=== PATIENT | male | born 1980 | race Caucasian/White ===

== ENCOUNTER 2019-07-26 20:50 | Emergency (ER) | payer BC ==
[2019-07-26 21:07] VITALS: BP 157/110; PULSE 117
[2019-07-26] MEDS ORDERED: HYDROmorphone 1 MG/ML Syringe IM ONE (21:50)
[2019-07-26] MEDS ORDERED: Albuterol/Ipratropium 3.0-0.5 MG/3 ML Neb Soln NEB ONE (21:50)
[2019-07-26] MEDS ORDERED: Albuterol 6.7 GM Inhaler INH SCH (22:45)
--- NOTE | 2019-07-26 22:48 | EDM.PDOC ---
ED HPI GENERAL MEDICAL PROBLEM - General Chief Complaint: Chest Pain Stated Complaint: LEFT SIDE OF CHEST PAIN Time Seen by Provider: 07/26/19 21:15 Source of Information: Reports: Patient History Limitations: Reports: No Limitations - History of Present Illness INITIAL COMMENTS - FREE TEXT/NARRATIVE: The patient presents with left chest pain and a cough. This started about a week ago with a cough. He was given a steroid and a breathing treatment and something for the cough. Two days ago when he was driving he coughed and felt severe pain to the left lower chest. He was seen here and an x-ray was done and it was negative. He was given something for the pain but it still hurts and he still has a cough. He also had a fever and chills. He has no history of asthma. Onset: Gradual Duration: Week(s): Location: Reports: Chest Quality: Reports: Sharp Severity: Moderate Improves with: Reports: Immobilization Worsens with: Reports: Breathing (and coughing) Associated Symptoms: Reports: Chest Pain, Cough, Fever/Chills. Denies: Headaches, Nausea/Vomiting, Shortness of Breath Left Chest Pain Score (Numeric/FACES): 10 - Related Data Allergies Allergy/AdvReac Type Severity Reaction Status Date / Time No Known Allergies Allergy Verified 07/26/19 21:06 Home Meds: Home Meds Ketorolac [Toradol] 10 mg PO ONETIME PRN #5 tablet 11/23/15 [Rx] Metoclopramide HCl [Reglan] 10 mg PO Q6H #5 tablet 11/23/15 [Rx] Past Medical History - Past Health History Medical/Surgical History: Denies Medical/Surgical History HEENT History: Reports: Impaired Vision Cardiovascular History: Reports: Hypertension Other Musculoskeletal History: R leg fracture Social & Family History - Family History Cardiac: Reports: Hypertension - Tobacco Use Smoking Status *Q: Never Smoker - Recreational Drug Use Recreational Drug Use: No - Living Situation & Occupation Living situation: Reports: Occupation: Employed ED ROS GENERAL - Review of Systems Review Of Systems: See Below Constitutional: Reports: Fever HEENT: Reports: No Symptoms Respiratory: Reports: Shortness of Breath, Cough Cardiovascular: Reports: Chest Pain Endocrine: Reports: No Symptoms GI/Abdominal: Reports: No Symptoms : Reports: No Symptoms Musculoskeletal: Reports: No Symptoms ED EXAM, GENERAL - Physical Exam Exam: See Below Exam Limited By: No Limitations General Appearance: Alert, No Apparent Distress Ears: Normal External Exam Nose: Normal Inspection Head: Atraumatic, Normocephalic Neck: Normal Inspection Respiratory/Chest: No Respiratory Distress, Lungs Clear, Normal Breath Sounds Cardiovascular: Regular Rate, Rhythm, No Edema, No Murmur, Other (Pain upon palpation to the left lower chest) GI/Abdominal: Soft, Non-Tender, No Organomegaly, No Mass Extremities: Normal Inspection Neurological: Alert, Oriented, No Motor/Sensory Deficits Course - Vital Signs Last Recorded V/S: Last Vital Signs Temp 97.5 F 07/26/19 21:04 Pulse 117 H 07/26/19 21:04 Resp 19 07/26/19 21:04 BP 157/110 H 07/26/19 21:04 Pulse Ox 92 L 07/26/19 21:50 - Orders/Labs/Meds Orders: Active Orders 24 hr Category Date Time Status RT Aerosol Therapy [RC] ASDIRECTED Care 07/26/19 21:50 Active RT Post Treatment Assessment [RC] Click to Edit Care 07/26/19 22:41 Ordered RT Pre-Treatment Assessment [RC] Click to Edit Care 07/26/19 22:41 Ordered CXR [Chest 2V] [CR] Stat Exams 07/26/19 21:51 Taken Albuterol [Proventil HFA] Med 07/26/19 22:45 Ordered See Dose Instructions INH Q4H Medication Orders Albuterol (Proventil Hfa) 0 gm INH Q4H LUIS Meds: Medications Generic Name Dose Route Start Last Admin Trade Name Freq PRN Reason Stop Dose Admin Albuterol 0 gm 07/26/19 22:45 Proventil Hfa INH Q4H LUIS Discontinued Medications Generic Name Dose Route Start Last Admin Trade Name Freq PRN Reason Stop Dose Admin Albuterol/Ipratropium 3 ml 07/26/19 21:50 07/26/19 22:10 Duoneb 3.0-0.5 Mg/3 Ml NEB 07/26/19 21:51 3 ml ONETIME ONE Administration Hydromorphone HCl 1 mg 07/26/19 21:50 07/26/19 22:02 Dilaudid IM 07/26/19 21:51 1 mg ONETIME ONE Administration - Re-Assessments/Exams Free Text/Narrative Re-Assessment/Exam: 07/26/19 22:45 I ordered a CXR, breathing treatment and dilaudid 1mg IM. I did not see anything bad on the CXR. I will give him some albuterol, zithromax, phenergan with codeine and some hydrocodone. Departure - Departure Time of Disposition: 22:50 Disposition: Home, Self-Care 01 Condition: Good Clinical Impression: Chest wall pain, Bronchitis Referrals: PCP,None [Primary Care Provider] - Additional Instructions: Use the albuterol 2 puffs every 6 hours as needed for shortness of breath. Take the zithromax 2 pill on day 1 and 1 pill on day 2 through 5. Take the phenergan with codeine 5 to 10mls every 6 hours. Take tylenol or motrin for fever or pain. If that does not help try the hydrocodone. Please return if you are worse. Sepsis Event Note - Evaluation Sepsis Screening Result: Possible Sepsis Risk - Focused Exam Vital Signs: Vital Signs Temp Pulse Resp BP Pulse Ox Pulse Ox 07/26/19 21:50 92 L 07/26/19 21:04 97.5 F 117 H 19 157/110 H 93 L Date Exam was Performed: 07/26/19 Time Exam was Performed: 22:42 - My Orders Last 24 Hours: My Active Orders 07/26/19 21:50 RT Aerosol Therapy [RC] ASDIRECTED 07/26/19 21:51 CXR [Chest 2V] [CR] Stat 07/26/19 22:41 RT Post Treatment Assessment [RC] Click to Edit RT Pre-Treatment Assessment [RC] Click to Edit 07/26/19 22:45 Albuterol [Proventil HFA] See Dose Instructions INH Q4H - Assessment/Plan Last 24 Hours: My Active Orders 07/26/19 21:50 RT Aerosol Therapy [RC] ASDIRECTED 07/26/19 21:51 CXR [Chest 2V] [CR] Stat 07/26/19 22:41 RT Post Treatment Assessment [RC] Click to Edit RT Pre-Treatment Assessment [RC] Click to Edit 07/26/19 22:45 Albuterol [Proventil HFA] See Dose Instructions INH Q4H
--- NOTE | 2019-07-27 07:10 | CR ---
Chest: Two views of the chest were obtained. Comparison: No previous chest x-ray. Heart size and mediastinum are normal. Slight bronchial wall thickening is seen within left lower lung. Mild atelectasis is seen within the lingula. Lungs otherwise are clear. Bony structures are unremarkable. Impression: 1. Mild focal bronchitis within the left lower lung. 2. Mild lingular atelectasis. 3. No other acute finding is seen. Diagnostic code #3 This report was dictated in [place] Standard Time
== END 2019-07-26 22:55 | disposition home or self-care (01) ==
LOC: JD.ED 20:50
DX: J40 Bronchitis, not specified as acute or chronic (principal); I10 Essential (primary) hypertension
CPT/HCPCS: 71046; 94640; 96372; 99285; J1170; 99283; J7620-GY

== ENCOUNTER 2022-06-22 18:31 | Emergency (ER) | payer BC ==
[2022-06-22] MEDS ORDERED: Dextrose 5%-Lactated Ringers 1,000 ML IV SCH (18:45)
[2022-06-22] MEDS ORDERED: Naloxone 0.4 MG/ML SDV IVPUSH ONE (18:48)
[2022-06-22] MEDS ORDERED: Naloxone 0.4 MG/ML SDV ONE (18:49)
[2022-06-22 19:14] LABS: ESTIMATED GFR 98 mL/min (>60)
[2022-06-22 19:26] VITALS: BP 134/98; PULSE 111
== END 2022-06-22 22:27 ==
LOC: JD.ED 18:31
DX: T40.411A Poisoning by fentanyl or fentanyl analogs, accidental (unintentional), initial encounter (principal); S62.514A Nondisplaced fracture of proximal phalanx of right thumb, initial encounter for closed fracture; Z79.899 Other long term (current) drug therapy; W18.40XA Slipping, tripping and stumbling without falling, unspecified, initial encounter
CPT/HCPCS: 36415; 74018; 80053; 85025; 96365; 96366; 96375; 99285; J2310; J7121; 73110-26-RT; 73110-RT; 73130-26-RT; 73130-RT

== ENCOUNTER 2022-09-21 18:31 | Emergency (ER) | payer BC, MEDICAID ==
[2022-09-21 18:42] VITALS: BP 121/82; PULSE 104
[2022-09-21] MEDS ORDERED: Ondansetron 4 MG Tab.DIS PO ONE (19:20)
[2022-09-21] MEDS ORDERED: traZODone 50 MG Tab PO ONE (20:21)
== END 2022-09-21 21:09 ==
LOC: JD.ED 18:31
DX: F11.23 Opioid dependence with withdrawal (principal); I10 Essential (primary) hypertension
CPT/HCPCS: 36415; 80053; 83690; 85025; 99284; A9270